=== PATIENT | male | born 1980 | race Two or more races ===

== ENCOUNTER 2023-07-21 08:11 | Emergency (ER) | payer OTHER ==
[~2023-07-21] VITALS: Ht 167.6 cm; Wt 102.1 kg
== END 2023-07-21 14:30 | disposition home or self-care (01) ==
LOC: ER 08:11
PROVIDERS: Emergency Medicine
DX: R10.9 Unspecified abdominal pain (principal)
CPT/HCPCS: 36415; 74177; Q9965